=== PATIENT | female | born 1980 | race American Indian/Alaskan Native ===

== ENCOUNTER 2018-10-28 10:36 | Emergency (ER) | payer OTHER ==
[2018-10-28 10:48] VITALS: BP 114/80
[2018-10-28 11:29] LABS: HCG Qualitative,Urine Negative (Negative)
[2018-10-28 11:34] LABS: Bacteria,Urine 4+ /HPF (Negative); Bilirubin,Urine NEG (Negative); Blood,Urine LG (Negative); Color,Urine Yellow (Yellow); Urobilinogen,Urine < 2.0 mg/dL (<2.0)
[2018-10-28 11:38] LABS: RBC,Urine > 182.0 /HPF (0.0-6.0); WBC,Urine > 182.0 /HPF (0.0-6.0)
[2018-10-28] MEDS ORDERED: IBUPROFEN PO ONE (11:43)
[2018-10-28] MEDS ORDERED: NORCO 7.5/325 PO ONE (11:43)
[2018-10-28] MEDS ORDERED: ZOFRAN ODT PO ONE (11:43)
[2018-10-28] MEDS ORDERED: MACROBID PO ONE (11:45)
--- NOTE | 2018-10-28 12:18 | Emergency Department Report ---
ED Abdominal Pain HPI - General Chief Complaint: Abdominal Pain Stated Complaint: ABD PAIN/EXTREME Time Seen by Provider: 10/28/18 11:33 Source: patient Mode of arrival: Ambulatory Limitations: No Limitations - History of Present Illness Initial Comments: Patient is a 38-year-old female who is complaining of lower abdominal pain. Patient states crampy in nature and a 10 out of 10 in severity. She has some mild nausea associated with the pain. Patient is on her menses and she states her flow is normal however this is more pain than she normally has with her menses. Patient denies any fevers chills, cough cold or congestion. Patient denies diarrhea. Patient states that she does have some urinary frequency. Severity scale (0 -10): 10 - Related Data Previous Rx's Medication Instructions Recorded Last Taken Type HYDROcodone/ACETAMINOPHEN 1 each PO Q6HR PRN #15 tablet 10/28/18 Unknown Rx [Hydrocodone-Acetamin 5-325 mg] Ibuprofen [Ibu] 600 mg PO Q6HR PRN #20 tablet 10/28/18 Unknown Rx Nitrofurantoin Monohyd/M-Cryst 100 mg PO BID #14 capsule 10/28/18 Unknown Rx [Macrobid 100 mg Capsule] Ondansetron [Zofran Odt] 4 mg PO Q8HR #10 tab.rapdis 10/28/18 Unknown Rx Phenazopyridine [Pyridium] 200 mg PO BID #6 tab 10/28/18 Unknown Rx Allergies Allergy/AdvReac Type Severity Reaction Status Date / Time No Known Allergies Allergy Unverified 10/28/18 10:37 ED Review of Systems ROS: Stated complaint: ABD PAIN/EXTREME Other details as noted in HPI Comment: All other systems reviewed and negative ED Past Medical Hx - Past Medical History Previous Medical History?: No - Surgical History Past Surgical History?: No - Social History Smoking Status: Never Smoker Substance Use Type: None - Medications Home Medications: Home Medications Medication Instructions Recorded Confirmed Last Taken Type HYDROcodone/ACETAMINOPHEN 1 each PO Q6HR PRN #15 tablet 10/28/18 Unknown Rx [Hydrocodone-Acetamin 5-325 mg] Ibuprofen [Ibu] 600 mg PO Q6HR PRN #20 tablet 10/28/18 Unknown Rx Nitrofurantoin Monohyd/M-Cryst 100 mg PO BID #14 capsule 10/28/18 Unknown Rx [Macrobid 100 mg Capsule] Ondansetron [Zofran Odt] 4 mg PO Q8HR #10 tab.rapdis 10/28/18 Unknown Rx Phenazopyridine [Pyridium] 200 mg PO BID #6 tab 10/28/18 Unknown Rx ED Physical Exam - General Limitations: No Limitations General appearance: alert, in distress (secondary to pain) - Head Head exam: Present: atraumatic, normocephalic - Eye Eye exam: Present: normal appearance - ENT ENT exam: Present: mucous membranes moist - Neck Neck exam: Present: normal inspection - Respiratory Respiratory exam: Present: normal lung sounds bilaterally. Absent: respiratory distress, wheezes, rales, rhonchi - Cardiovascular Cardiovascular Exam: Present: regular rate, normal rhythm. Absent: systolic murmur, diastolic murmur, rubs, gallop - GI/Abdominal GI/Abdominal exam: Present: soft, tenderness (supropubic), normal bowel sounds. Absent: distended, guarding, rebound, rigid - Extremities Exam Extremities exam: Present: normal inspection - Back Exam Back exam: Present: normal inspection - Neurological Exam Neurological exam: Present: alert, oriented X3 - Psychiatric Psychiatric exam: Present: normal affect, normal mood - Skin Skin exam: Present: warm, dry, intact, normal color. Absent: rash ED Course Vital Signs 10/28/18 10:46 Temperature 98.2 F Pulse Rate 104 H Respiratory 16 Rate Blood Pressure 114/80 [Left] O2 Sat by Pulse 99 Oximetry ED Medical Decision Making - Lab Data Lab Results 10/28/18 Range/Units 11:01 Urine Color Yellow (Yellow) Urine Turbidity Turbid (Clear) Urine pH 6.0 (5.0-7.0) Ur Specific [place] 1.011 (1.003-1.030) Urine Protein 100 mg/dl (Negative) mg/dL Urine Glucose (UA) Neg (Negative) mg/dL Urine Ketones Neg (Negative) mg/dL Urine Blood Lg (Negative) Urine Nitrite Pos (Negative) Ur Reducing Substances Not Reportable Urine Bilirubin Neg (Negative) Urine Ictotest Not Reportable Urine Urobilinogen < 2.0 (<2.0) mg/dL Ur Leukocyte Esterase Lg (Negative) Urine WBC (Auto) > 182.0 H (0.0-6.0) /HPF Urine RBC (Auto) > 182.0 (0.0-6.0) /HPF U Epithel Cells (Auto) 3.0 (0-13.0) /HPF Urine Bacteria (Auto) 4+ (Negative) /HPF Urine WBC Clumps 3+ /HPF Urine Yeast (Budding) 3+ /HPF Urine HCG, Qual Negative (Negative) - Medical Decision Making Patient with acute cystitis. Patient will be started on antibiotics and given pain meds for symptomatic relief. She'll be discharged home. Critical care attestation.: If time is entered above; I have spent that time in minutes in the direct care of this critically ill patient, excluding procedure time. ED Disposition Clinical Impression: Dysmenorrhea Acute cystitis Qualifiers: Hematuria presence: with hematuria Qualified Code(s): N30.01 - Acute cystitis with hematuria Disposition: TO HOME OR SELFCARE Is pt being admited?: No Does the pt Need Aspirin: No Condition: Stable Instructions: Urinary Tract Infection in Women (ED) Referrals: SHELBY LANDIS MD [Primary Care Provider] - 3-5 Days Time of Disposition: 12:18
== END 2018-10-28 12:39 | disposition home or self-care (01) ==
LOC: ED 10:36
DX: N30.00 Acute cystitis without hematuria (principal); N94.6 Dysmenorrhea, unspecified
CPT/HCPCS: 81001; 81025; Q0162